=== PATIENT | female | born 1955 | race Caucasian/White ===

== ENCOUNTER 2021-05-04 07:56 | Day surgery (SDC) | payer OTHER ==
[2021-05-04] MEDS ORDERED: Ringers Lactate 1,000 ML IV ONE (08:42)
[2021-05-04] MEDS ORDERED: FENTANYL CITR 100 MCG/2 ML ONE (10:30)
[2021-05-04] MEDS ORDERED: MIDAZOLAM HCL 2 MG/2 ML INJ ONE ×2 (10:30→11:03)
[2021-05-04] MEDS ORDERED: LIDOCAINE 1% MPF 30 ML VIAL ONE (10:30)
[2021-05-04] MEDS ORDERED: propofoL 200 MG/20 ML VIAL IV ONE ×2 (10:30→12:25)
[2021-05-04] MEDS ORDERED: LIDOCAINE 1% W/EPI 1:100,000 MDV 20 ML VIAL ONE (11:28)
[2021-05-04 12:58] VITALS: O2SAT 98
[2021-05-04 13:44] VITALS: BP 108/66; TEMP 97
--- NOTE | 2021-05-04 16:57 | OP ---
Date of Procedure: 05/04/2021 Surgeon: Neena Cardoza MD Postoperative Diagnosis: Postmenopausal bleeding. Postoperative Diagnosis: Postmenopausal bleeding. Procedures Performed: Diagnostic hysteroscopy, dilation and curettage. Anesthesia: MAC plus paracervical block. Specimens: Endometrial curettings and Pipelle biopsy. Complications: No complications. Drains: No drains. Condition: Stable. Indications: The patient is a 65-year-old female presented with postmenopausal bleeding. On transva ginal ultrasound, her endometrial lining was 1.1 cm. Given the thickness of the lining, she was cons ented for endometrial sampling. The patient with history of breast cancer, on anastrozole. The vinayak ent of Dr. Brown Description Of Procedure: After informed consent was verified, she was taken back to OR, placed in a supine fashion on the operating table. MAC was given, placed in a dorsal lithotomy position. Pelvi c exam performed. Vulva and vagina prepped and draped in a sterile fashion. I injected the cervix w ith 1% lidocaine with epinephrine at the 12 o'clock, 4 and 8 o'clock positions of the cervicovaginal junction for a block. Then, direct hysteroscopy was performed through the cervical canal carefully i nto the uterine cavity. The cavity was narrow. The canal was stenotic, but once it was dilated unde r careful visualization, the cavity was empty. The scope was removed. The cervix was dilated to 14- Monegasque and endometrial curette was used to perform a biopsy. Once this was done, there was a very sc ant amount of sample. So, a Pipelle was used to retrieve more tissue. This was placed along with th e specimen from the curettings sent for permanent pathology. All the instruments and the needles and sponges were counted at the end of the case after removing them and they were correct. She tolerate d the procedure well. She was recovered from anesthesia and taken to PACU in stable condition. She h as a 1-week followup appointment with me in the office. We will discuss the pathology results at the time. PAYAL/RANDY Voice ID: [id number] Report ID: [id number]
== END 2021-05-04 13:36 | disposition home or self-care (01) ==
LOC: OR 07:56
PROVIDERS: ATTEND Obstetrics & Gynecology
PROC: 0UJD8ZZ Inspection of Uterus and Cervix, Via Natural or Artificial Opening Endoscopic (ICD-10-PCS; 2021-05-04)
PROC: 0UDB7ZX Extraction of Endometrium, Via Natural or Artificial Opening, Diagnostic (ICD-10-PCS; principal; 2021-05-04 09:30)
DX: N95.0 Postmenopausal bleeding (principal); N95.2 Postmenopausal atrophic vaginitis; R35.0 Frequency of micturition; Z86.010 Personal history of colon polyps; Z85.3 Personal history of malignant neoplasm of breast; Z20.822 Contact with and (suspected) exposure to COVID-19
CPT/HCPCS: 88305; 58558; U0003; J2704 ×2; J2250; J3010; J7120

== ENCOUNTER 2022-04-10 06:32 | Day surgery (SDC) | payer OTHER ==
[2022-04-04 12:05] LABS: Urine Bilirubin NEGATIVE (Negative); Urine Blood Trace-intact (Negative); Urine Clarity Clear (Clear); Urine Color Yellow (Yellow); Urine Glucose NEGATIVE (Negative); Urine Protein NEGATIVE (Negative); Urine Urobilinogen 0.2 mg/dL (0.2-1.0); Urine pH 5.5 (5.0-7.0)
[2022-04-04 12:07] LABS: Urine Bacteria 20-50 /HPF (<20); Urine RBC <5 /HPF (None Seen)
[2022-04-06 12:41] LABS: Absolute Lymphocytes (CBC) 1.8 K/uL (0.7-4.9); Lymphocytes % 22.8 % (15.3-44.8); MCV 85.2 fL (80-100); MPV 8.8 fL (7.6-11.3); RBC Red Blood Cell Count 4.94 M/uL (3.86-4.86)
[2022-04-06 12:42] LABS: SARS-CoV-2 Antigen Rapid Res Negative (Negative)
[2022-04-10] MEDS ORDERED: Ringers Lactate 1,000 ML IV ONE ×2 (06:57→08:43)
[2022-04-10] MEDS ORDERED: SCOPOLAMINE HYDROBROMIDE PATCH TD ONE (06:57)
[2022-04-10] MEDS ORDERED: CEFAZOLIN 2 GM IN 0.9% NACL 2 GM/100 ML BAG ONE (06:58)
[2022-04-10] MEDS ORDERED: KETAMINE HCL 500 MG/5 ML VIAL ONE (07:22)
[2022-04-10] MEDS ORDERED: propofoL 200 MG/20 ML VIAL IV ONE (07:22)
[2022-04-10] MEDS ORDERED: LIDOCAINE 2% MPF 5 ML VIAL ONE (07:23)
[2022-04-10] MEDS ORDERED: MIDAZOLAM HCL 2 MG/2 ML INJ ONE (07:23)
[2022-04-10] MEDS ORDERED: NS 0.9% VIAL 20 ML ONE (07:23)
[2022-04-10] MEDS ORDERED: ROCURONIUM 50 MG/5 ML VIAL IV ONE (07:23)
[2022-04-10] MEDS ORDERED: FENTANYL CITR 250 MCG/5 ML ONE (07:23)
[2022-04-10] MEDS ORDERED: dexAMETHasone 10 MG/ML VIAL ONE (07:23)
[2022-04-10] MEDS ORDERED: ONDANSETRON 4 MG/2 ML VIAL ONE (07:25)
[2022-04-10] MEDS ORDERED: EPHEDRINE SULF 50 MG/ML VIAL ONE (08:05)
[2022-04-10] MEDS: BUPIVACAINE 0.25% PF 30 ML VIAL ONE ×2 (08:18→09:59)
[2022-04-10] MEDS ORDERED: Phenylephrine HCl 10 MG/ML 1 ML VIAL ONE (08:24)
[2022-04-10] MEDS ORDERED: GLYCOPYRROLATE 0.2 MG/ML SYR ONE ×2 (08:28→10:21)
[2022-04-10] MEDS ORDERED: KETOROLAC 30 MG/ML INJ ONE (10:09)
[2022-04-10] MEDS ORDERED: NEOSTIGMINE 1 MG/ML -10 ML VIAL ONE (10:30)
[2022-04-10] MEDS ORDERED: MEPERIDINE HCL 25 MG/ML SYR IM PRN (10:32)
[2022-04-10] MEDS ORDERED: PROMETHAZINE INJ 25 MG/ML AMP IV PRN (10:32)
[2022-04-10] MEDS ORDERED: HYDROCODONE/APAP 5/325 MG TAB PO PRN (10:32)
--- NOTE | 2022-04-10 10:38 | P.BOP ---
Preoperative diagnosis: post menopausal bleeding, LSIL pap, h/o breast cancer Postoperative diagnosis: same Primary procedure: TLH BSO, lysis of bladder adhesions, cystoscopy Meat Supervisor: CAPRI BUSTILLO Estimated blood loss: min Specimen: uterus tubes ovaries, washings Findings: normal samll uterus dense ant wall bladder adhesions Anesthesia: General Complications: None Transferred to: Recovery Room Condition: Good
[2022-04-10] MEDS ORDERED: IBANDRONATE SODIUM 150 MG PO SCH (10:45)
[2022-04-10 13:38] VITALS: BP 116/64; TEMP 97.2; O2SAT 96
--- NOTE | 2022-04-10 22:26 | OP ---
Date of Procedure: 04/10/2022 Surgeon: Neena Cardoza MD Fire Support Man: Liza. Preoperative Diagnosis: Postmenopausal bleeding, abnormal Pap with low-grade squamous intraepithelia l lesion, history of breast cancer. Postoperative Diagnosis: Postmenopausal bleeding, abnormal Pap with low-grade squamous intraepitheli al lesion, history of breast cancer, and bladder adhesions. Procedures Performed: Total laparoscopic hysterectomy, bilateral salpingo-oophorectomy, lysis of paul dder adhesions, cystoscopy, pelvic washings. Ebl: Minimal. Specimen: Uterus, tubes, ovaries and pelvic washings. Findings: Normal small uterus, dense anterior wall adhesions to the bladder as well as to the left s idewall. Anesthesia: General endotracheal. Complications: None. Condition: Stable. Indications: The patient is a 66-year-old female who presented with postmenopausal bleeding, evaluat ed with ultrasound and sampling. No atypia or malignancy was detected. Her Pap smear was LSIL, alth ough HPV negative. She has history of breast cancer and is on anastrozole. Discussed about all the different options for treatment and the other impact of her anastrozole on her uterine lining and the risk of polyps. Also about her ovarian hormone production, if there is any small estrogen productio n, this could be suppressed and be beneficial for her prognosis of recurrence of breast cancer. Then , discussed about dysplastic Pap, so considering all different benefits and also understanding the ri sks of the procedure, the patient consented for hysterectomy, bilateral salpingo-oophorectomy, and pe lvic washings. She was consented and brought to the OR preoperatively. Her sister was present by he r side and questions were answered to their satisfaction, and once she was brought back, she was plac ed in a supine fashion on the operating table. General anesthesia was given, placed in dorsal lithot armand position using Guillermo stirrups. Abdomen, vulva, vagina, and perineum prepped and draped in a ster ile fashion. Gamboa was placed to drain the bladder and a small VCare was introduced into the uterus and fixed in place. The small cup was used due to the size of the cervix and its location anteriorly . A 10 mm infraumbilical incision was made. Using the Bryant technique, the trocar was introduced. Af ter adequate insufflation, site of entry was checked. On the right upper side, there were mostly ome ntal adhesions, then anteriorly to the anterior abdominal wall and bladder, the uterus was attached. There were dense adhesions as well as to the left lateral wall obliterating completely the space fro m the bladder all the way to the round ligament on the left side. Ovaries appeared to be normal and ureters undistorted in their anatomical location. Very tiny implants of endometriosis noted in the p osterior cul-de-sac on the lateral wall. Left 5 port and 10 suprapubic ports were placed under direct vision. The colon appeared to be full, distended with stool. No other abnormalities. After she was placed on T-board, the bowel was adequa tely retracted and case was started. The adhesions of the anterior abdominal wall were taken down wi th the help of the LigaSure, clearly dissecting the retroperitoneal space and the bladder away from t he uterus without leaving any uterine tissue here. The dissection was carried down all the way throu gh the anterior wall of the uterus to the level of the cervix. Then, the adhesions were taken down l aterally from the round ligaments to this attachment. This detached the uterus in the fundus to come down and then the 10 port was able to be placed. The dissection was carried on the left lateral peritoneum parallel to the IP ligament. This was open ed up and dissected all the way to the round ligament. Once all the tissue was taken down, the media l leaf of the broad ligament was isolated. The area between the ureter and the IP were opened up and the pedicle of the IP was taken down. The bowel adhesions had to be taken down in order for me to e xpose the left adnexa. The sigmoid colon was taken down in the sharp fashion. The rest of the posterior leaf of the broad ligament was taken down. The lower level of the round li gament all the way down to the lower part of the body of the uterus and slightly below the internal o s of the cervix. Then, the broad ligament was skeletonized in the center. The dissection was perfor med to identify the anterior vaginal wall. Then, the bladder was dissected inferiorly all the way. There was at least 6 cm of the cervix for length, and the cup was seen for below in the midline. The dissection was performed to lift the bladder off until the cup was visualized. Then, on the opposit e side, similar dissection was performed isolating the IP, taking the round ligament first and then t he mesosalpinx, and all the anterior and posterior leaves of the broad ligament to skeletonize the ve ssels. Once these vessels were skeletonized, they were taken down on either side with the LigaSure a nd then dissected in the paracervical area using the LigaSure and went down all the way to the level of the cup. Once this was reached, monopolar hook blade was used to perform a circumferential colpot armand and the specimen was detached and pulled out through the vagina. Thorough irrigation and suction were performed. The vaginal cuff was closed with the help of 2-0 V-Loc in a continuous running fash ion in 2 layers. There was excellent hemostasis. No evidence of any electrical, mechanical, or ther mal injury to the ureter. The bladder was retrograde filled and there was no leak. All the trocars were removed under direct vision and injected with 0.25% bupivacaine. The fascia at the umbilicus after desufflation and removing the Bryant was closed with the help of 0 Vicryl sutures tied to each other and simple 0 Vicryl stitch at the suprapubic fascial incision. All the skin incisions closed with 4-0 chromic. The vaginal occluder and Gamboa were removed. Cystoscopy was performed with a 17-Hungarian sheath, 30-de gree lens, normal saline. Strong jets of urine from both ureteric orifices. No evidence of any trau ma to the bladder or foreign body. The bladder was drained. The patient was recovered from anesthes ia and taken to the PACU in stable condition. EBL was minimal. She will follow up in 1 week. PAYAL/RANDY Voice ID: [id number] Report ID: [id number]
[2022-04-11] MEDS ORDERED: HOME MED 1 EA UNK (Aripiprazole [Abilify] 2 MG Tablet) PO SCH (09:00)
[2022-04-11] MEDS ORDERED: HOME MED 1 EA UNK (Omeprazole [Prilosec] 40 MG Capsule.Dr) PO SCH (09:00)
[2022-04-11] MEDS ORDERED: ANASTROZOLE 1 MG TAB PO SCH (09:00)
[2022-04-11] MEDS ORDERED: HOME MED 1 EA UNK (Zinc [Zinc] 50 MG Tablet) PO SCH (09:00)
[2022-04-11] MEDS ORDERED: VITAMIN D 5,000 UNIT CAP PO SCH (09:00)
[2022-04-11] MEDS ORDERED: HOME MED 1 EA UNK (Calcium Carbonate [Calcium] 600 MG Tablet) PO SCH (09:00)
[2022-04-11] MEDS ORDERED: ASCORBIC ACID 500 MG TABLET PO SCH (09:00)
== END 2022-04-10 17:03 | disposition home or self-care (01) ==
LOC: OR 06:32
PROVIDERS: ATTEND Obstetrics & Gynecology
PROC: 0UT24ZZ Resection of Bilateral Ovaries, Percutaneous Endoscopic Approach (ICD-10-PCS; 2022-04-10)
PROC: 0UT74ZZ Resection of Bilateral Fallopian Tubes, Percutaneous Endoscopic Approach (ICD-10-PCS; 2022-04-10)
PROC: 0UJH0ZZ Inspection of Vagina and Cul-de-sac, Open Approach (ICD-10-PCS; 2022-04-10)
PROC: 0UT94ZZ Resection of Uterus, Percutaneous Endoscopic Approach (ICD-10-PCS; principal; 2022-04-10 07:30)
DX: N95.0 Postmenopausal bleeding (principal); R87.610 Atypical squamous cells of undetermined significance on cytologic smear of cervix (ASC-US); G47.00 Insomnia, unspecified; Z85.3 Personal history of malignant neoplasm of breast; Z86.010 Personal history of colon polyps; Z20.822 Contact with and (suspected) exposure to COVID-19; N32.89 Other specified disorders of bladder; D25.9 Leiomyoma of uterus, unspecified
CPT/HCPCS: 58571; 57000; 87088; 85025; 81001; 87086; 36415; 86900; 88108; 86850; 86901; 88305; 88307; 87811; J2704; J2710; J2370; J2250; J3010; J1100; J0690; J7120 ×2; J2405